=== PATIENT | female | born 1990 | race African-American/Black ===

== ENCOUNTER 2017-02-22 04:45 | Emergency (ER) | payer MEDICAID, OTHER ==
[~2017-02-22] VITALS: Ht 170.2 cm; Wt 86.0 kg
[2017-02-22 04:49] VITALS: BP 122/72; PULSE 87; RESP 14; TEMP 98.3; O2SAT 98
[2017-02-22] MEDS ORDERED: HYDR-3533 PO (06:18)
--- NOTE | 2017-02-22 06:18 | PD ---
HPI Chief Complaint: Pain: Acute or Chronic Time Seen by Provider: 05:33 Travel History International Travel<30 days: No Contact w/Intl Traveler<30days: No Traveled to known affect area: No History of Present Illness HPI 35-year-old female arrives complaining of pain in the left back parathoracic distribution for about 2 days. She woke up with the pain. It gradually worsened over the course of the day. It is been difficult to sleep on account of the pain. She's had no nausea vomiting fever or shortness of breath or chest pain. She denies trauma. She denies past medical history. She's had a cholecystectomy and no other surgery. No numbness tingling in the saddle distribution. No fecal urinary incontinence or bowel bladder changes. PFSH Past Medical History Medical History: Denies Significant Hx Diminished Hearing: No Respiratory: Yes (ALLERGIES-SINUS) ?: Not LMP: none : 1 Para: 0 Miscarriage: 0 : 0 Past Surgical History Cholecystectomy: Yes Social History Alcohol Use: No (quit) Tobacco Use: No (never) Substance Use: No Allergies-Medications (Allergen,Severity, Reaction): Coded Allergies: No Known Allergies (Verified , 02/22/17) Uncoded Allergies: SEASONAL (Allergy, Mild, 09/19/06) Reported Meds & Prescriptions Reported Meds & Active Scripts Active No Active Prescriptions or Reported Medications Review of Systems Except as stated in HPI: all other systems reviewed are Neg Physical Exam Narrative GENERAL: 26-year-old female pleasant well-nourished well-developed SKIN: Focused skin assessment warm/dry. HEAD: Atraumatic. Normocephalic. EYES: Pupils equal and round. No scleral icterus. No injection or drainage. ENT: No nasal bleeding or discharge. Mucous membranes pink and moist. NECK: Trachea midline. No JVD. CARDIOVASCULAR: Regular rate and rhythm. No murmur appreciated. RESPIRATORY: No accessory muscle use. Clear to auscultation. Breath sounds equal bilaterally. GASTROINTESTINAL: Abdomen soft, non-tender, nondistended. Hepatic and splenic margins not palpable. MUSCULOSKELETAL: No obvious deformities. No clubbing. No cyanosis. No edema. NEUROLOGICAL: Awake and alert. No obvious cranial nerve deficits. Motor grossly within normal limits. Normal speech. 2+ DTRs in the patellar tendon bilaterally. Toe dorsiflexion 5 over 5 bilaterally. No ankle clonus. Knee flexion 5 over 5 and equal. PSYCHIATRIC: Appropriate mood and affect; insight and judgment normal. Data Data Last Documented VS Vital Signs Date Time Temp Pulse Resp B/P Pulse Ox O2 Delivery O2 Flow Rate FiO2 02/22/17 04:49 98.3 87 14 122/72 98 Room Air VS reviewed [facility] Medical Decision Making Medical Screen Exam Complete: Yes Emergency Medical Condition: Yes Differential Diagnosis Myofascial strain, compression of the spinal cord, aorta injury, PE Narrative Course On exam patient is tender in the region of the left parathoracic musculature. There is no focal spinal tenderness. There is no neurologic deficit. There is no pleuritic chest pain.. Pain controlled. Patient will be discharged with pain control. Diagnosis Primary Impression: Back pain Qualified Code: M54.6 - Acute left-sided thoracic back pain Referrals: Primary Care Physician 2 days Additional Instructions: You have a choice when it comes to health care, and we are glad that you chose [facility]. Hopefully, we have met your expectations on today's visit. You are welcome to return to [facility] at any time, as we are committed to meeting the health care needs of our community. Med/Other Pt SpecificInfo: Prescription(s) given Scripts Hydrocodone-Acetaminophen (Lortab)5-325 Mg Tab1-2 Tab PO Q6H PRN (PAIN SCALE 6 TO 10) #15 TAB Ref 0 Prov:Horace Shepard MD 02/22/17 Disposition: 01 DISCHARGE HOME Condition: Stable Horace Shepard MD Feb 22, 2017 06:18
== END 2017-02-22 07:01 | disposition home or self-care (01) ==
LOC: NEPC 04:45
DX: M54.6 Pain in thoracic spine (principal)
CPT/HCPCS: 99283